=== PATIENT | male | born 1995 | race Caucasian/White ===

== ENCOUNTER 2017-05-18 23:36 | Emergency (ER) | payer OTHER ==
[2017-05-18 23:40] VITALS: RESP 16; O2SAT 96
--- NOTE | 2017-05-18 23:54 | CPEKG ---
Heart Rate: 82 RR Interval: 732 P-R Interval: 168 QRSD Interval: 92 QT Interval: 352 QTC Interval: 411 P [employer] [place]: 81 QRS [employer] [place]: 59 T Wave [employer]: 49 EKG Severity - NORMAL ECG - EKG Impression: SINUS RHYTHM Electronically Signed By: [place] 20-May-2017 05:41:38
[2017-05-19] MEDS ORDERED: FAMOTIDINE 20 MG/NACL 50 ML IV ONE (00:13)
[2017-05-19] MEDS ORDERED: MAG HYDROX/AL HYDROX/SIMETH 30 ML UDCUP PO ONE (00:13)
--- NOTE | 2017-05-19 00:17 | EDPHY ---
H & P Stated Complaint: Chest/Epigastric pain, after eating today. Time Seen by Provider: 05/18/17 23:46 HPI/ROS: HPI The patient presents with epigastric abdominal pain which began at 2:00 p.m. this afternoon, it started slowly and got progressively worse. He took a nap and some Tums by mouth and felt a bit better when he awoke at 6:00 p.m., however the pain has progressed since then. He describes it as a squeezing pain without any radiation which is sometimes worse with movement. He has not had any nausea or vomiting. He does not have any dark or bloody stools. He has taken ibuprofen for years but none over the last 1 week. He denies any alcohol use. He has not had any abdominal operations. REVIEW OF SYSTEMS Constitutional: No fever, no chills. Eyes: No discharge. ENT: No sore throat. Cardiovascular: No chest pain, no palpitations. Respiratory: No cough, no shortness of breath. Gastrointestinal: See HPI Genitourinary: No hematuria. Musculoskeletal: No back pain. Skin: Bilateral foot rash Neurological: No headache. PMHx: History of undescended testicle Soc Hx: Here with girlfriend PHYSICAL General Appearance: Alert, somewhat uncomfortable appearing Eyes: Pupils equal and round no pallor or injection ENT, Mouth: Mucous membranes moist Respiratory: There are no retractions, lungs are clear to auscultation Cardiovascular: Regular rate and rhythm Gastrointestinal: Abdomen is soft with mild epigastric tenderness, no masses, bowel sounds normal Neurological: A&O, moves all extremities Skin: Warm and dry, dorsum of both feet with scaling erythematous rash Musculoskeletal: Neck is supple non tender Extremities: symmetrical, full range of motion Psychiatric: Patient is oriented X 3, there is no agitation Source: Patient Exam Limitations: No limitations - Personal History Current Tetanus/Diphtheria Vaccine: Yes Current Tetanus Diphtheria and Acellular Pertussis (TDAP): Yes Tetanus Vaccine Date: 2010 - Medical/Surgical History Hx Asthma: No Hx Chronic Respiratory Disease: No Hx Diabetes: No Hx Cardiac Disease: No Hx Renal Disease: No Hx Cirrhosis: No Hx Alcoholism: No Hx HIV/AIDS: No Hx Splenectomy or Spleen Trauma: No Other PMH: R Shoulder, surgery for undescended testicle. - Social History Smoking Status: Heavy smoker Constitutional: Initial Vital Signs Temperature (C) 36.5 C 05/18/17 23:38 Heart Rate 94 05/18/17 23:38 Respiratory Rate 16 05/18/17 23:38 Blood Pressure 116/76 05/18/17 23:38 O2 Sat (%) 96 05/18/17 23:38 O2 Delivery Mode Room Air Allergies/Adverse Reactions: adhesive Allergy (Intermediate, Verified 05/18/17 23:40) Rash peanut Allergy (Intermediate, Verified 05/18/17 23:40) Abdominal Cramping soy Allergy (Intermediate, Verified 05/18/17 23:40) Abdominal Cramping wheat Allergy (Intermediate, Verified 05/18/17 23:40) Abdominal Cramping Home Medications: Medication Instructions Recorded Famotidine [Pepcid 20 MG (*)] 20 mg PO BID #30 tab 05/19/17 Medical Decision Making Differential Diagnosis: 22-year-old healthy male with 1 day of epigastric pain. On exam, vital signs normal, mild tenderness in the epigastrium. Differential diagnosis includes gastritis, gastroenteritis, cholecystitis, cholelithiasis, pancreatitis. In the emergency department, labs were checked and were unremarkable. The patient was initially given famotidine and GI cocktail with minimal improvement in his symptoms. Then he was given Reglan and his symptoms completely resolved , he felt much better and would like to go home. I feel he is likely suffering from gastritis. I have explained this to him, I have advised a bland diet and that he initiate Pepcid until his symptoms improved. He was given information for follow up with primary care. - Data Points Laboratory Results: Laboratory Results 05/18/17 23:55 05/18/17 23:55 05/18/17 05/18/17 23:55 23:55 WBC 5.37 10^3/uL 10^3/uL (3.80-9.50) RBC 5.19 10^6/uL 10^6/uL (4.40-6.38) Hgb 16.7 g/dL g/dL (13.7-17.5) Hct 46.6 % % (40.0-51.0) MCV 89.8 fL fL (81.5-99.8) MCH 32.2 pg pg (27.9-34.1) MCHC 35.8 g/dL g/dL (32.4-36.7) RDW 11.8 % % (11.5-15.2) Plt Count 214 10^3/uL 10^3/uL (150-400) MPV 10.3 fL fL (8.7-11.7) Neut % (Auto) 58.1 % % (39.3-74.2) Lymph % (Auto) 32.2 % % (15.0-45.0) [place] % (Auto) 8.6 % % (4.5-13.0) Eos % (Auto) 0.7 % % (0.6-7.6) Baso % (Auto) 0.2 % L % (0.3-1.7) Nucleat RBC Rel Count 0.0 % % (0.0-0.2) Absolute Neuts (auto) 3.12 10^3/uL 10^3/uL (1.70-6.50) Absolute Lymphs (auto) 1.73 10^3/uL 10^3/uL (1.00-3.00) Absolute Monos (auto) 0.46 10^3/uL 10^3/uL (0.30-0.80) Absolute Eos (auto) 0.04 10^3/uL 10^3/uL (0.03-0.40) Absolute Basos (auto) 0.01 10^3/uL L 10^3/uL (0.02-0.10) Absolute Nucleated RBC 0.00 10^3/uL 10^3/uL (0-0.01) Immature Gran % 0.2 % % (0.0-1.1) Immature Gran # 0.01 10^3/uL 10^3/uL (0.00-0.10) Sodium 143 mEq/L mEq/L (134-144) Potassium 4.3 mEq/L mEq/L (3.5-5.2) Chloride 104 mEq/L mEq/L (97-110) Carbon Dioxide 24 mEq/l mEq/l (22-31) Anion Gap 15 mEq/L mEq/L (8-16) BUN 10 mg/dL mg/dL (7-23) Creatinine 1.0 mg/dL mg/dL (0.7-1.3) Estimated GFR > 60 Glucose 92 mg/dL mg/dL (70-100) Calcium 10.2 mg/dL mg/dL (8.5-10.4) Total Bilirubin 0.7 mg/dL mg/dL (0.1-1.4) Conjugated Bilirubin 0.2 mg/dL mg/dL (0.0-0.5) Unconjugated Bilirubin 0.5 mg/dL mg/dL (0.0-1.1) AST 21 IU/L IU/L (17-59) ALT 37 IU/L IU/L (21-72) Alkaline Phosphatase 52 IU/L IU/L (38-126) Total Protein 8.0 g/dL g/dL (6.3-8.2) Albumin 4.9 g/dL g/dL (3.5-5.0) Lipase 76 IU/L IU/L (23-300) Medications Given: Discontinued Medications Al Hydroxide/Mg Hydroxide (Maalox Susp) 30 ml PO ONCE ONE Stop: 05/19/17 00:14 Last Admin: 05/19/17 00:31 Dose: 30 ml Famotidine/Sodium Chloride (Pepcid 20 Mg (Premix)) 50 mls @ 200 mls/hr IV EDNOW ONE Stop: 05/19/17 00:27 Last Admin: 05/19/17 00:31 Dose: 50 mls Lidocaine HCl 125 mg/ Sodium (Chloride) 112.5 mls @ 600 mls/hr IV EDNOW ONE Stop: 05/19/17 01:52 Last Admin: 05/19/17 04:32 Dose: Not Given Sodium Chloride (Ns) 1,000 mls @ 0 mls/hr IV EDNOW ONE; Wide Open PRN Reason: Protocol Stop: 05/19/17 01:42 Last Admin: 05/19/17 01:55 Dose: 1,000 mls Metoclopramide HCl (Reglan Injection) 10 mg IVP EDNOW ONE Stop: 05/19/17 01:42 Last Admin: 05/19/17 01:55 Dose: 10 mg Departure - Departure Disposition: Home, Routine, Self-Care Clinical Impression: Epigastric abdominal pain Condition: Good Instructions: Gastritis (ED), Diet for Stomach Ulcers and Gastritis (ED) Additional Instructions: The cause of your pain is not entirely clear, though is likely coming from your stomach. Because of this, you should avoid any spicy or acidic foods and try eating a bland diet to see if this improves her symptoms. I have also given you a prescription for medication to try. Please return to the emergency department if your worse in any way. Otherwise, you should follow up with the primary care doctor I have given you the information for for recheck. Referrals: Daphney Ross MD [Medical Doctor] - As per Instructions Prescriptions: Famotidine [Pepcid 20 MG (*)] 20 mg PO BID #30 tab
[2017-05-19 00:20] LABS: % IMMATURE GRANULYOCYTES 0.2 % (0.0-1.1); ABSOLUTE IMMATURE GRANULOCYTES 0.01 10^3/uL (0.00-0.10); ADD DIFF? NO; ADD MORPH? NO; ADD SCAN? NO; ATYPICAL LYMPHOCYTE FLAG 0 (0-99); FRAGMENT RBC FLAG 0 (0-99); HEMATOCRIT 46.6 % (40.0-51.0); HEMOGLOBIN 16.7 g/dL (13.7-17.5); LEFT SHIFT FLG 0 (0-99); LIPEMIA HEMOLYSIS FLAG 90 (0-99); MEAN CELL HEMOGLOBIN 32.2 pg (27.9-34.1); MEAN CELL HEMOGLOBIN CONCENTR. 35.8 g/dL (32.4-36.7); MEAN CELL VOLUME 89.8 fL (81.5-99.8); MEAN PLATELET VOLUME 10.3 fL (8.7-11.7); PLATELET CLUMPS FLAG 0 (0-99); PLATELET COUNT 214 10^3/uL (150-400); RED BLOOD CELL COUNT 5.19 10^6/uL (4.40-6.38); RED CELL DISTRIBUTION WIDTH 11.8 % (11.5-15.2)
[2017-05-19 00:27] LABS: ALANINE AMINOTRANSFERASE 37 IU/L (21-72); ALBUMIN 4.9 g/dL (3.5-5.0); ALKALINE PHOSPHATASE 52 IU/L (38-126); ANION GAP 15 mEq/L (8-16); ASPARTATE AMINOTRANSFERASE 21 IU/L (17-59); BILIRUBIN,TOTAL 0.7 mg/dL (0.1-1.4); BILIRUBIN-CONJUGATED 0.2 mg/dL (0.0-0.5); BILIRUBIN-UNCONJUGATED 0.5 mg/dL (0.0-1.1); CALCIUM 10.2 mg/dL (8.5-10.4); CARBON DIOXIDE 24 mEq/l (22-31); CHLORIDE 104 mEq/L (97-110); GLOMERULAR FILTRATION RATE > 60; GLUCOSE 92 mg/dL (70-100); POTASSIUM 4.3 mEq/L (3.5-5.2); SODIUM 143 mEq/L (134-144)
[2017-05-19] MEDS ORDERED: NS 1,000 ML IV ONE (01:41)
[2017-05-19] MEDS ORDERED: NS IV ONE (01:41)
[2017-05-19] MEDS ORDERED: METOCLOPRAMIDE 10 MG/2 ML VIAL IVP ONE (01:41)
[2017-05-19] MEDS ORDERED: LIDOCAINE IV ONE (01:41)
[2017-05-19 04:33] VITALS: BP 118/70; PULSE 61; TEMP 98.1
== END 2017-05-19 02:32 | disposition home or self-care (01) ==
PROC: 3E0337Z Introduction of Electrolytic and Water Balance Substance into Peripheral Vein, Percutaneous Approach (ICD-10-PCS; principal; 2017-05-18)
DX: R10.13 Epigastric pain (principal); F17.200 Nicotine dependence, unspecified, uncomplicated; E86.9 Volume depletion, unspecified; Z91.010 Allergy to peanuts
CPT/HCPCS: 96365; J2765

== ENCOUNTER → 2017-08-24 | Outpatient (CLI) | payer OTHER | LOC: BMCIMAGING 17:53 | PROVIDERS: ATTEND Family Medicine | DX: M54.9 Dorsalgia, unspecified (principal) ==